=== PATIENT | male | born 1955 | race Caucasian/White ===

== ENCOUNTER 2017-04-11 10:53 | Day surgery (SDC) | payer BC ==
[~2017-04-11 10:53] MED LIST: Lactated Ringers 1,000 ML IV SCH
[2017-04-11] MEDS ORDERED: Propofol 200 MG/20 ML SDV ONE ×2 (11:03→11:35)
[2017-04-11] MEDS ORDERED: Midazolam 1 MG/ML 2 ML SDV ONE (11:03)
[2017-04-11] MEDS ORDERED: fentaNYL 100 MCG/2 ML SDV ONE (11:04)
--- NOTE | 2017-04-11 11:29 | PCM.PREANE ---
Preanesthetic Assessment - Anesthesia/Transfusion/Family Hx Anesthesia History: Prior Anesthesia Without Reaction Family History of Anesthesia Reaction: No Transfusion History: No Prior Transfusion(s) - Review of Systems General: No Symptoms Pulmonary: No Symptoms Cardiovascular: No Symptoms Gastrointestinal: No Symptoms - Physical Assessment NPO Status Date: 04/10/17 O2 Sat by Pulse Oximetry: 96 Respiratory Rate: 16 Vital Signs: Last Vital Signs Temp 36.1 C 04/11/17 11:09 Pulse 70 04/11/17 11:09 Resp 16 04/11/17 11:09 BP 116/86 04/11/17 11:09 Pulse Ox 96 04/11/17 11:09 Height: 1.78 m Weight: 79.379 kg ASA Class: 2 Mental Status: Alert & Oriented x3 Airway Class: Mallampati = 2 ROM/Head Extension: Full Lungs: Clear to Auscultation, Normal Respiratory Effort Cardiovascular: Regular Rate, Regular Rhythm - Allergies Allergies/Adverse Reactions: Allergies Allergy/AdvReac Type Severity Reaction Status Date / Time metronidazole [From Flagyl] Allergy Rash Verified 04/03/17 12:19 - Anesthesia Plan Pre-Op Medication Ordered: None - Acknowledgements Anesthesia Type Planned: MAC Pt an Appropriate Candidate for the Planned Anesthesia: Yes Alternatives and Risks of Anesthesia Discussed w Pt/Guardian: Yes Pt/Guardian Understands and Agrees with Anesthesia Plan: Yes Additional Comments: receeding chin, devitalized mandibular incisor PreAnesthesia Questionnaire Other HEENT History: had upper premanent bridge Cardiovascular History: Reports: High Cholesterol, Hypertension Gastrointestinal History: Reports: GERD, Irritable Bowel Syndrome - Past Surgical History GI Surgical History: Reports: Colonoscopy - SUBSTANCE USE Smoking Status *Q: Never Smoker Recreational Drug Use History: No - HOME MEDS Home Medications: Home Meds Fish Oil/Bradford-3 Fatty Acids [Fish Oil 1,000 MG] 1,000 mg PO DAILY 04/03/17 [ History] L.acidoph,Paracasei, B.lactis [Probiotic] 1 cap PO DAILY 04/03/17 [History] Omeprazole 20 mg PO DAILY 04/03/17 [History] PARoxetine HCl [Paxil] 10 mg PO DAILY 04/03/17 [History] Ramipril 10 mg PO DAILY 04/03/17 [History] Saw/Vit E/Sod Tala/Lyc/Beta/Pyg [Prostate Health Caplet] 1 cap PO DAILY 04/03/17 [History] atorvaSTATin Calcium [Atorvastatin Calcium] 20 mg PO DAILY 04/03/17 [History] - CURRENT (IN HOUSE) MEDS Current Meds: Current Medications Lactated Ringer's (Ringers, Lactated) 1,000 mls @ 125 mls/hr IV [facility] Last Admin: 04/11/17 11:10 Dose: 125 mls/hr Discontinued Medications Fentanyl (Sublimaze) Confirm Administered Dose 100 mcg .ROUTE .STK-MED ONE Stop: 04/11/17 11:05 Midazolam HCl (Versed 1 Mg/Ml) Confirm Administered Dose 2 mg .ROUTE .STK-MED ONE Stop: 04/11/17 11:04 Propofol (Diprivan 20 Ml) Confirm Administered Dose 200 mg .ROUTE .STK-MED ONE Stop: 04/11/17 11:04
--- NOTE | 2017-04-11 12:07 | PCM.OPNOTE ---
- General Post-Op/Procedure Note Date of Surgery/Procedure: 04/11/17 Operative Procedure(s): egd w bx; and colonscopy Findings: see dict [id number] Pre Op Diagnosis: increase constipation and wt loss Post-Op Diagnosis: Same Anesthesia Technique: Moderate Sedation Primary Surgeon: Phillip Miles Pathology: sent Complications: None Condition: Good
--- NOTE | 2017-04-11 12:18 | PCM48HPAN ---
Post Anesthesia Note - EVALUATION WITHIN 48HRS OF ANESTHETIC Vital Signs in Normal Range: Yes Patient Participated in Evaluation: Yes Respiratory Function Stable: Yes Airway Patent: Yes Cardiovascular Function Stable: Yes Hydration Status Stable: Yes Pain Control Satisfactory: Yes Nausea and Vomiting Control Satisfactory: Yes Mental Status Recovered: Yes
--- NOTE | 2017-04-11 12:18 | PCM.POSTAN ---
POST ANESTHESIA ASSESSMENT - MENTAL STATUS Mental Status: Alert, Oriented - RESPIRATORY Respiratory Status: Respiratory Rate WNL, Airway Patent - CARDIOVASCULAR CV Status: Pulse Rate WNL, Blood Pressure Stable - GASTROINTESTINAL GI Status: No Symptoms - POST OP HYDRATION Hydration Status: Adequate & Stable
[2017-04-11 12:24] VITALS: BP 107/66
--- NOTE | 2017-04-11 19:35 | OR ---
SURGEON: Phillip Miles MD DATE OF PROCEDURE: 04/11/2017 PREOPERATIVE DIAGNOSIS: Increased constipation and weight loss. POSTOPERATIVE DIAGNOSES: EGD diagnoses are acid reflux and stomach polyp. Colonoscopy diagnosis is internal hemorrhoids. PROCEDURES PERFORMED: EGD with biopsy. EGD: The patient was taken to the endoscopy room, and with the [employer]ICE [employer]IDENT, Diprivan was administered. A well-lubricated EGD scope was gently inserted through the oropharynx, down the esophagus, passing through the gastroesophageal junction, into the stomach. The mucosa was examined upon the passage. Any etiology will be noted. Once in the stomach, we continued to advance to the distal antrum, passed through the pylorus into the second portion of the duodenum. Again, the mucosa was examined for any abnormality and etiology. The scope was then retrieved back to the stomach and then retroflexed to look at the fundus of the stomach. If a biopsy was indicated, we will biopsy the antrum, body, and gastroesophageal junction. The air will be sucked out while the scope is retrieved to reduce the patient's discomfort. The patient tolerated the procedure well. There were no intraoperative complications. Dr. Miles was present through the whole procedure. Prior to surgery, a time-out had been called, the patient identified, procedure identified and antibiotic administered. Colonoscopy: The patient was taken to the endoscopy room. A time out was called, patient identified, and procedure identified. Diprivan was then administrated. Patient went from awake to sleep, hearing doctor talking or door closing is normal. Perineum inspection and digital examination were then performed. A well- lubricated colonoscope was gently inserted through the rectum, advanced past the rectosigmoid junction, the descending colon, splenic flexure, transverse colon, hepatic flexure, ascending colon, arrived to the cecum. Cecum was identified as dictated in the finding. Then the scope was carefully withdrawn while attention was paid to the mucosal surface for any abnormality. Air will be sucked out during the scope withdrawal. At the rectum, retroflexed to examine any rectal diseases, fistula or hemorrhoids. Patient tolerated procedure well. There were no intraoperative complications, and Dr. Miles was present throughout the whole procedure. EGD FINDINGS: 1. The patient is easily sedated with [employer] and Diprivan. The patient is soundly snoring. 2. Oropharynx and proximal esophagus are free of disease. Grossly normal. No inflammation, stricture, or inflammation. Distal esophagus at 40 shows flame like salmon color change consistent with moderate acid reflux, but there is no ulcer. Stomach rugae is normal in appearance and there is no blood, ulcer, bleeding, bile, or food particle. Blood observed and there is some water. Antrum is little bit inflamed. Duodenum was grossly normal. Retroflexed look at the fundus of stomach and there is no etiology. The patient has a lot of small polyps about 1 to 2 mm greater curvature close to about 50 to 60 of them. Biopsy done at antrum, took away one of the polyp and biopsy done and GE junction at 40 cm and sucked out the air while scope pulling out. COLONOSCOPY FINDINGS: The patient was easily sedated with [employer]ICE [employer]IDENT and Diprivan. The patient is soundly snoring and bowel prep is left to be desirable. There is not much of a semi- formed stool, but there is a tremendous amount of bubbles coating the mucosa and making the study compromise. Colon is rather straight forward. Cecum indicated by ileocecal fold, one-to-one indentation, and appendix orifice and light immittance is not observed. Mucosa examined upon scope pulling out with constant irrigation. The patient does not have diverticulosis, polyp, mass, growth, inflammation, stricture, ulceration, polyp AV malformation. The patient has mild internal hemorrhoids. The patient would benefit from repeat colonoscopy 10 years from today or if clinically indicated otherwise. The patient can receive a telephone report if the patient is so desires. IVANNA / AI /[id number]
== END 2017-04-11 12:31 | disposition home or self-care (01) ==
LOC: MW.SDS 10:53
PROVIDERS: ATTEND Surgery
DX: K29.50 Unspecified chronic gastritis without bleeding (principal); K31.7 Polyp of stomach and duodenum; K21.9 Gastro-esophageal reflux disease without esophagitis; K64.8 Other hemorrhoids; I10 Essential (primary) hypertension; E78.00 Pure hypercholesterolemia, unspecified; K58.9 Irritable bowel syndrome, unspecified; Z88.1 Allergy status to other antibiotic agents; Z79.899 Other long term (current) drug therapy; Z98.890 Other specified postprocedural states
CPT/HCPCS: 43239; 45378; J2250; J3010; J7120; 00740; 88305; 88312; J2704